=== PATIENT | male | born 1970 | race Caucasian/White ===

== ENCOUNTER 2022-03-27 13:16 | Outpatient (CLI) | payer OTHER, SELFPAY | END 2022-03-27 13:17 | disposition home or self-care (01) | LOC: AMB 04-19 06:31 | PROVIDERS: Visit Provider Emergency Medicine Emergency Medical Services | DX: S29.9XXA Unspecified injury of thorax, initial encounter (principal); S89.92XA Unspecified injury of left lower leg, initial encounter; W17.89XA Other fall from one level to another, initial encounter; Y93.H3 Activity, building and construction; Y92.61 Building [any] under construction as the place of occurrence of the external cause | CPT/HCPCS: A0425; A0427 ==

== ENCOUNTER 2022-03-27 13:48 | Emergency (ER) | payer OTHER, SELFPAY ==
[2022-03-27] VITALS (37 sets, daily range): BP systolic 110–132; BP diastolic 62–92; PULSE 72–95; RESP 16; TEMP 37.1; O2SAT 94–99
--- NOTE | 2022-03-27 13:59 | CRLHL7_ITS ---
For Patients: As a result of the Century Cures Act, medical imaging exams and procedure reports are released immediately into your electronic medical record. You may view this report before your referring provider. If you have questions, please contact your health care provider. INDICATION: Trauma. COMPARISON: Two-view chest February 04, 2020. TECHNIQUE: Portable AP chest. FINDINGS: Normal size cardiac silhouette. Clear lung rick with no evidence of acute pulmonic infiltrates. No pneumothorax or pleural effusion. IMPRESSION: Negative chest. Dictated by Gerald Nguyen MD @ 03/27/2022 2:27:20 PM (Electronically Signed)
--- NOTE | 2022-03-27 14:01 | CRLHL7_ITS ---
For Patients: As a result of the Cures Act, medical imaging exams and procedure reports are released immediately into your electronic medical record. You may view this report before your referring provider. If you have questions, please contact your health care provider. INDICATION: Fall, neck pain TECHNIQUE: CT cervical spine without contrast. COMPARISON: None. FINDINGS: There is normal cervical lordosis. The vertebral body heights are maintained and in good alignment. The facets are properly aligned. Negative for acute fracture. Mild multilevel disc space narrowing. Prevertebral soft tissues are within normal limits. Limited visualization of the lung apices are unremarkable. IMPRESSION: Negative for acute fracture. Dictated by Mirta Nicolas MD @ 03/27/2022 2:29:49 PM Please note that all CT scans at this facility use dose modulation, iterative reconstruction, and/or weight-based dosing when appropriate to reduce radiation dose to as low as reasonably achievable. Dictated by: Mirta Nicolas MD @ 03/27/2022 14:30:14 (Electronically Signed)
--- NOTE | 2022-03-27 14:01 | CT_ITS ---
Patient: JEFF GIBSON Facility:?[facility] Patient ID:?[id number] Site Patient ID:?[id number]. Site :?[id number] Study:?CT-Chest/Abd/Pelvis W/ 100CC [id number]/13/2022 2:31:25 PM Ordering Physician:Tutu Valdez Final Report: INDICATION: Trauma. Fall TECHNIQUE: CT chest, abdomen and pelvis acquired with 100 cc Isovue 370 IV contrast. COMPARISON: CT 02/05/2020 FINDINGS: Chest: Cardiovascular structures: Heart size is normal. Thoracic aorta and main pulmonary artery are normal in caliber. Mediastinum and cash: No mass or adenopathy. Lungs: Bibasilar atelectasis. Very tiny right pneumothorax. No pleural effusions. Chest wall and axilla: No mass or adenopathy. Bones: Nondisplaced fractures of right posterior 10th and 11th ribs. Abdomen and Pelvis: Liver: Unremarkable. Gallbladder and bile ducts: Unremarkable. Spleen: Unremarkable. Pancreas: Unremarkable. Adrenal glands: Unremarkable. Kidneys: Unremarkable. GI tract: Colonic diverticulosis without evidence of acute diverticulitis. Appendix is normal. Vascular structures: Unremarkable. Lymph nodes: Unremarkable. Miscellaneous: Unremarkable. No free air or significant free fluid. Pelvic Organs: Unremarkable. Bones: Right rib fracture is described above. No additional fracture is seen. IMPRESSION: 1. Nondisplaced fractures of the right posterior 10th and 11th ribs. There is a very tiny right pneumothorax. 2. No evidence of acute injury in the abdomen or pelvis. Please note that all CT scans at this facility use dose modulation, iterative reconstruction, and/or weight-based dosing when appropriate to reduce radiation dose to as low as reasonably achievable. Dictated by Zaid Bhat MD @ 03/27/2022 2:46:13 PM Signed by:?Zaid Bhat MD @03/27/2022 2:46:13 PM (Electronic Signature)
[2022-03-27] MEDS: ONDANSETRON 2 MG/ML inj 4 MG IVP (14:07)
[2022-03-27] MEDS: MORPHINE 4 MG/ML INJ IVP (14:08)
--- NOTE | 2022-03-27 14:08 | ED.GENADULT ---
HPI - General Adult General Date Seen: 03/27/22 Chief complaint: Fall/Minor Trauma Stated complaint: Fall 16ft Time Seen by Provider: 03/27/22 13:59 Source: patient and EMS History of Present Illness HPI narrative: Patient is a 52-year-old male who is generally healthy aside from an CO couple of years ago, he had a stent placed, currently on a statin but not on any anticoagulants. 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 He had a stair railing on the way down and then landed at the base of a flight of stairs. He complained of pain in the right flank area, pain with breathing and some shortness of breath secondary to pain. He denies hitting his head, no loss of consciousness. Initially denied neck pain although on further clarification did note some pain in the right side of his neck. No midline neck pain. He also noted some pain in the back of his thigh on the left. He denied anterior chest pain, abdominal pain, midline back pain, pain in the pelvis or hips. He received 50 mcg of fentanyl from paramedics. He was noted to have normal vital signs throughout transport. Medics did take pictures of the scene which I reviewed. Patient does not smoke, when I asked him if he drinks he said ?I am [place]?, but notes that he does not drink heavily. Denies other substance use. Denies allergies. Related Data Home Medications Medication Instructions Recorded Confirmed rosuvastatin 20 mg tablet mg 03/27/22 Allergies Allergy/AdvReac Type Severity Reaction Status Date / Time No Known Drug Allergies Allergy Verified 03/27/22 14:21 Review of Systems Status of ROS: Reports: 10 or more systems reviewed and unremarkable except as noted in History and below [facility] Social History Smoking Status: Never smoker Do you use any of these nicotine containing products: None Second hand tobacco smoke exposure: No How often do you have a drink containing alcohol: never How often do you have six or more drinks on one occasion: Never AUDIT-C Alcohol total score: 0 Exam Narrative: Exam Narrative: Primary survey: Airway: Patent. Breathing: Nonlabored. Lungs clear. Breath sounds equal. Circulation: Pulses intact. No external bleeding. Disability: GCS 15. Secondary survey: Vital signs reviewed In general, an alert, nontoxic male. Head: Normocephalic, atraumatic. Eyes: Pupils are equal reactive. Extraocular movements full. ENT: No facial trauma. Dentition intact. Neck: Cervical collar in place. No midline cervical tenderness. Did have some mild tenderness on the right side of the neck into the right trapezius muscle. No visible trauma. No anterior neck trauma. Chest: No visible signs of chest trauma. No tenderness in the anterior chest, significant tenderness in the right posterior lower rib cage. No crepitus or subQ air. Heart regular rate and rhythm. Lungs clear bilaterally. Abdomen: No visible signs of trauma. Soft, nondistended, nontender to palpation. Back: No visible signs of trauma. Nontender to palpation in the midline, right lower ribcage tenderness as outlined above. Pelvis: Stable, nontender. Full range of motion bilateral hips out pain. Extremities: Atraumatic in appearance. Some tenderness of the posterior mid to proximal thigh on the left without obvious hematoma or contusion. No deformity, no bony tenderness. No other areas of tenderness on upper or lower extremities. Pulses intact. Neurologic: Alert, conversant, moves all extremities to command. Skin: Warm and dry, no abrasions or lacerations. Const: Vital Signs, click to edit/add: Vital Signs - 24 hr 03/27/22 13:56 03/27/22 13:57 03/27/22 14:02 Temperature Pulse Rate 75 72 Pulse Rate [Left P ulse Oximeter] Respiratory Rate Blood Pressure 121/88 123/82 132/84 Blood Pressure [Le ft Upper Arm] Pulse Oximetry 97 97 Oxygen Delivery Me thod 03/27/22 14:06 03/27/22 14:17 03/27/22 14:00 Temperature 98.8 F Pulse Rate 82 Pulse Rate [Left P ulse Oximeter] 76 Respiratory Rate 16 Blood Pressure 119/86 Blood Pressure [Le ft Upper Arm] 121/88 Pulse Oximetry 99 96 98 Oxygen Delivery Me thod Room Air 03/27/22 14:07 03/27/22 14:27 03/27/22 14:30 Temperature Pulse Rate 73 88 87 Pulse Rate [Left P ulse Oximeter] Respiratory Rate Blood Pressure Blood Pressure [Le ft Upper Arm] Pulse Oximetry 98 94 95 Oxygen Delivery Me thod 03/27/22 14:31 03/27/22 14:36 03/27/22 14:40 Temperature Pulse Rate 85 83 83 Pulse Rate [Left P ulse Oximeter] Respiratory Rate Blood Pressure 120/83 121/78 Blood Pressure [Le ft Upper Arm] Pulse Oximetry 97 96 95 Oxygen Delivery Me thod 03/27/22 14:41 03/27/22 14:46 03/27/22 14:50 Temperature Pulse Rate 83 95 85 Pulse Rate [Left P ulse Oximeter] Respiratory Rate Blood Pressure 125/76 120/92 H Blood Pressure [Le ft Upper Arm] Pulse Oximetry 97 97 96 Oxygen Delivery Me thod 03/27/22 14:51 03/27/22 14:57 03/27/22 14:58 Temperature Pulse Rate 84 77 83 Pulse Rate [Left P ulse Oximeter] Respiratory Rate Blood Pressure 127/75 118/69 Blood Pressure [Le ft Upper Arm] Pulse Oximetry 96 94 96 Oxygen Delivery Me thod 03/27/22 15:00 03/27/22 15:01 03/27/22 15:06 Temperature Pulse Rate 80 79 90 Pulse Rate [Left P ulse Oximeter] Respiratory Rate Blood Pressure 119/75 119/69 Blood Pressure [Le ft Upper Arm] Pulse Oximetry 95 95 96 Oxygen Delivery Me thod 03/27/22 15:10 03/27/22 15:11 03/27/22 15:16 Temperature Pulse Rate 84 82 87 Pulse Rate [Left P ulse Oximeter] Respiratory Rate Blood Pressure 123/76 118/71 Blood Pressure [Le ft Upper Arm] Pulse Oximetry 95 96 96 Oxygen Delivery Me thod 03/27/22 15:20 03/27/22 15:21 03/27/22 15:26 Temperature Pulse Rate 82 83 82 Pulse Rate [Left P ulse Oximeter] Respiratory Rate Blood Pressure 115/67 114/68 Blood Pressure [Le ft Upper Arm] Pulse Oximetry 96 96 96 Oxygen Delivery Me thod 03/27/22 15:30 03/27/22 15:32 03/27/22 15:47 Temperature Pulse Rate 89 77 Pulse Rate [Left P ulse Oximeter] Respiratory Rate Blood Pressure 110/70 Blood Pressure [Le ft Upper Arm] Pulse Oximetry 97 96 Oxygen Delivery Me thod 03/27/22 15:50 03/27/22 18:56 03/27/22 18:58 Temperature Pulse Rate 77 86 86 Pulse Rate [Left P ulse Oximeter] Respiratory Rate Blood Pressure 113/79 Blood Pressure [Le ft Upper Arm] Pulse Oximetry 97 98 98 Oxygen Delivery Me thod 03/27/22 19:00 03/27/22 19:01 03/27/22 19:30 Temperature Pulse Rate 85 87 84 Pulse Rate [Left P ulse Oximeter] Respiratory Rate Blood Pressure 117/62 Blood Pressure [Le ft Upper Arm] Pulse Oximetry 97 98 98 Oxygen Delivery Me thod 03/27/22 19:32 Temperature Pulse Rate 85 Pulse Rate [Left P ulse Oximeter] Respiratory Rate Blood Pressure 122/72 Blood Pressure [Le ft Upper Arm] Pulse Oximetry 97 Oxygen Delivery Me thod Documenting provider has reviewed patient's vital signs: yes Course Course Hospital Course: Following initial evaluation, I did an E fast exam which was normal. Bilateral sliding lung signs were seen, there was no fluid in the abdomen and no evidence of pericardial effusion. Patient received 4 mg of morphine and 4 mg of Zofran for ongoing pain in the ribcage. A portable chest x-ray was done but has not yet been sent over. Patient was sent over for CT scans of the cervical spine, chest abdomen and pelvis. At this time I have held off on doing a CT of the head given the absence of any reported head trauma, loss of consciousness headache, or other symptoms of head trauma. Patient's only indication for head imaging would be mechanism, I think at this time I will just observe for while and see if he develops any symptoms. Labs ordered as well and these are pending. Anticipate that he will likely have rib fractures, but at this time he does not have evidence of thorax requiring treatment. Vital signs have remained stable. My review of his chest x-ray showed no evidence of pneumothorax. I do think he probably has at least 1 rib fracture, it looks to me on the right as if the 10th rib is fractured. Radiology read his chest x-ray is negative. On review of his CT scan, I see fractures of the 10th and 11th rib, there is no significant pneumothorax, there may be just a very tiny pneumothorax, no significant hemothorax, and I do not see any other trauma. Abdomen looked negative to me. CT scan of the cervical spine was read by Radiology as negative. Given that the patient does not have any midline neck pain, is moving his neck freely, I did remove the cervical collar and clear his C-spine. CT scan of the chest abdomen pelvis was read by Radiology as showing fractures of the 10th and 11th ribs and a tiny pneumothorax. I reviewed this with Dr. Espinoza who was on-call for General surgery in terms of whether this should be admitted for observation verses reasonable necessity of a repeat chest x-ray in the ER and then discharged home. She felt either was an option as long as he had a repeat chest x-ray tomorrow morning. His preference was to go home. His labs were normal, hemoglobin was normal, metabolic panel with normal, LFTs were normal. We did try and get a urine, but he said he was unable to pee in the cup for some reason. He did urinate while he was here, and denied gross hematuria. He had an oxycodone orally, he feels his pain is reasonably managed. I repeated a chest x-ray at the 4 hour anayeli, he does not have evidence of a visible pneumothorax by my review, final radiology read is likewise negative for pneumothorax on chest x-ray. Plan is to discharge him home. He will have an outpatient chest x-ray tomorrow which Dr. Espinoza will follow up on. If there is a visible pneumothorax tomorrow she will arrange for treatment as needed. In the meantime, I have advised him that he if he develops significant shortness of breath, significant chest pain, lightheadedness, fainting, or other acute worsening he should come back to the emergency department right away. Otherwise, ibuprofen and/or Tylenol 3 times daily with food. Oxycodone if needed for more severe pain. Anticipate gradual improvement over the next 1-2 months. Ice as needed.. Vital Signs Vital signs: Initial Vital Signs Pulse Rate 75 03/27/22 13:56 Blood Pressure 121/88 03/27/22 13:56 Blood Pressure Mean 99 03/27/22 13:56 Pulse Oximetry 97 03/27/22 13:56 Vital Signs Pulse Rate 75 03/27/22 13:56 Blood Pressure 121/88 03/27/22 13:56 Pulse Oximetry 97 03/27/22 13:56 Temperature 98.8 F 03/27/22 14:17 Pulse Rate 85 03/27/22 19:32 Respiratory Rate 16 03/27/22 14:17 Blood Pressure 122/72 03/27/22 19:32 Pulse Oximetry 97 03/27/22 19:32 Oxygen Delivery Method 03/27/22 14:17 Medical Decision Making Lab Data Labs: Lab Results 03/27/22 03/27/22 03/27/22 Range/Units 13:55 13:55 13:55 WBC 7.84 (4.50-11.00) K/uL RBC 4.61 (4.30-5.90) m/uL Hgb 13.8 (13.5-17.5) gm/dL Hct 40.6 (37.0-53.0) % MCV 88 (80-100) fL MCH 30 (26-34) pg MCHC 34 (32-36) gm/dL RDW Coeff of Monica 11.9 (11.5-15.5) % Plt Count 217 (140-440) K/uL Neut % (Auto) 60.3 (42.0-72.0) % Lymph % (Auto) 29.2 (20-44) % Edmunds % (Auto) 8.3 (0.0-11.0) % Eos % (Auto) 1.4 (0.0-7.0) % Baso % (Auto) 0.4 (0.0-3.0) % Neut # (Auto) 4.73 (1.7-7.0) K/uL Lymph # (Auto) 2.29 (0.90-2.90) K/uL Edmunds # (Auto) 0.70 (0.00-0.90) K/UL Eos # (Auto) 0.11 (0.00-0.50) K/uL Baso # (Auto) 0.03 (0.00-0.30) K/uL Abs Immat Gran (auto) 0.03 (0.00-0.30) K/uL Imm/Tot Granulo (auto) 0.4 % INR 0.99 (0.91-1.10) APTT 24 (23-33) Seconds Sodium 139 (135-149) mmol/L Potassium 5.0 (3.6-5.1) mmol/L Chloride 109 (96-114) mmol/L Carbon Dioxide 25 (20-32) mmol/L BUN 21 (7-30) mg/dL Creatinine 1.0 (0.5-1.5) mg/dL Estimated GFR 89 ml/min Glucose 96 (60-115) mg/dL Calcium 8.3 L (8.4-10.6) mg/dL Total Bilirubin 0.8 (0.1-1.5) mg/dL Direct Bilirubin 0.1 (0.0-0.5) mg/dL AST 38 H (12-35) U/L ALT 36 (4-50) U/L Alkaline Phosphatase 60 (40-150) U/L Total Protein 6.6 (6.0-8.3) g/dL Albumin 4.0 (3.3-5.0) g/dL Discharge Plan Discharge Clinical Impression: Fracture, ribs, Pneumothorax on right Patient Disposition: Home, Self-Care Condition: Stable Instructions: Rib Fracture (ED) Additional Instructions: Ibuprofen and/or Tylenol 3 times daily with food. Oxycodone if needed for more severe pain. If you have significant worsening shortness of breath, chest pain, lightheadedness, fainting, or other worsening, return at any time to the emergency department. Otherwise, return tomorrow morning for outpatient chest x-ray. Dr. Espinoza, general surgery, will follow up on that x-ray and advise you if further therapy is needed. Prescriptions: No Action rosuvastatin 20 mg tablet Label Comments: TAKE ONE TABLET BY MOUTH DAILY. Follow Up/Referrals: Denise Burns MD [Staff Physician] - Stand Alone Forms: [facility] Info Instructions
[2022-03-27 14:14] LABS: Basophils Absolute Auto 0.03 K/uL (0.00-0.30); Basophils Percent Auto 0.4 % (0.0-3.0); Eosinophils Absolute Auto 0.11 K/uL (0.00-0.50); Eosinophils Percent Auto 1.4 % (0.0-7.0); Hematocrit 40.6 % (37.0-53.0); Hemoglobin* 13.8 gm/dL (13.5-17.5); Immature Granulocytes Abs Auto 0.03 K/uL (0.00-0.30); Immature Granulocytes Pct Auto 0.4 %; Lymphocytes Absolute Auto 2.29 K/uL (0.90-2.90); Lymphocytes Percent Auto 29.2 % (20-44); Mean Corpuscular HGB Conc 34 gm/dL (32-36); Mean Corpuscular Hemoglobin 30 pg (26-34); Mean Corpuscular Volume 88 fL (80-100); Monocytes Percent Auto 8.3 % (0.0-11.0); Neutrophils Absolute Auto 4.73 K/uL (1.7-7.0); Neutrophils Percent Auto 60.3 % (42.0-72.0); Platelet Count* 217 K/uL (140-440); RDW Coefficient of Variation % 11.9 % (11.5-15.5); Red Blood Count 4.61 m/uL (4.30-5.90); Slide Review Reflex No; White Blood Count* 7.84 K/uL (4.50-11.00)
[2022-03-27 14:33] LABS: INR 0.99 (0.91-1.10); Prothrombin Time 13.7 Seconds
[2022-03-27 14:34] LABS: Partial Thromboplastin Time* 24 Seconds (23-33)
[2022-03-27 14:47] LABS: Chloride* 109 mmol/L (96-114)
[2022-03-27 14:48] LABS: Sodium* 139 mmol/L (135-149)
[2022-03-27 14:50] LABS: Aspartate Amino Transferase* 38 U/L (12-35); Bilirubin Direct* 0.1 mg/dL (0.0-0.5); Bilirubin Total* 0.8 mg/dL (0.1-1.5); Blood Urea Nitrogen* 21 mg/dL (7-30); Carbon Dioxide* 25 mmol/L (20-32); Estimated Glomerular Filt Rate 89 ml/min; Total Protein* 6.6 g/dL (6.0-8.3)
[2022-03-27 14:51] LABS: Alanine Aminotransferase* 36 U/L (4-50); Alkaline Phosphatase* 60 U/L (40-150); Calcium* 8.3 mg/dL (8.4-10.6); Glucose* 96 mg/dL (60-115)
[2022-03-27] MEDS: KETOROLAC 15 MG/ML inj IVP (14:54)
[2022-03-27] MEDS: OXYCODONE 5 MG TABLET PO (15:49)
--- NOTE | 2022-03-27 17:58 | XR_ITS ---
Patient: JEFF GIBSON Facility:?[facility] Patient ID:?[id number] Site Patient ID:?[id number]. Site :?[id number] Study:?XRay-Chest PORTABLE-03/27/2022 2:20:09 PM Ordering Physician:Tutu Valdez Final Report: INDICATION: Trauma. COMPARISON: Two-view chest February 04, 2020. TECHNIQUE: Portable AP chest. FINDINGS: Normal size cardiac silhouette. Clear lung rick with no evidence of acute pulmonic infiltrates. No pneumothorax or pleural effusion. IMPRESSION: Negative chest. Dictated by Gerald Nguyen MD @ 03/27/2022 2:27:20 PM Signed by:?Gerald Nguyen MD @03/27/2022 2:27:20 PM (Electronic Signature)
== END 2022-03-27 19:58 | disposition home or self-care (01) ==
PROVIDERS: Emergency Provider Emergency Medicine
DX: S22.41XA Multiple fractures of ribs, right side, initial encounter for closed fracture (principal); J93.9 Pneumothorax, unspecified; W17.89XA Other fall from one level to another, initial encounter
CPT/HCPCS: 36415; 71045; 71260; 72125; 74177; 80048; 80076; 81001; 85025; 85610; 85730; 94761; 96374; 96375; 99283; 99284; 99285; 99291; A9270; G0390; J1885; J2270; J2405; Q9967

== ENCOUNTER 2022-03-28 10:11 | Outpatient (CLI) | payer OTHER, SELFPAY ==
--- NOTE | 2022-03-28 10:30 | CRLHL7_ITS ---
For Patients: As a result of the Cures Act, medical imaging exams and procedure reports are released immediately into your electronic medical record. You may view this report before your referring provider. If you have questions, please contact your health care provider. INDICATION: FOLLOW UP RIB FRACTURES TECHNIQUE: Chest 2 views COMPARISON: CT 03/27/2022 FINDINGS: Right pneumothorax is present measuring 1.8 cm. Trachea midline. Cardiac silhouette unchanged. No pleural effusion. Dependent atelectasis. Subcutaneous emphysema at the right lower hemithorax posteriorly again noted. Fractures of the right 10th and 11th ribs better visualized on CT. IMPRESSION: Right pneumothorax has increased slightly in the interim. Dictated by Nestor Horan MD @ 03/28/2022 11:59:08 AM (Electronically Signed)
== END 2022-03-28 10:12 | disposition home or self-care (01) ==
PROVIDERS: Visit Provider Emergency Medicine
DX: S22.49XA Multiple fractures of ribs, unspecified side, initial encounter for closed fracture (principal); J93.9 Pneumothorax, unspecified
CPT/HCPCS: 71046

== ENCOUNTER 2022-03-28 17:46 | Observation (INO) | payer OTHER, SELFPAY ==
[2022-03-28 12:21] VITALS: BP 136/81; PULSE 72; RESP 18; TEMP 36.9; O2SAT 97; BMI 30.9
[2022-03-28 13:05] LABS: SARS PCR* Negative SARS-CoV-2 (Negative)
--- NOTE | 2022-03-28 14:00 | XR_ITS ---
Final Report Patient: JEFF GIBSON Facility:?[facility] Patient ID:?[id number] Site Patient ID:?[id number]. Site :?[id number] Study:?XRay Chest PORTABLE-03/27/2022 2:20:09 PM Ordering Physician:Tutu Valdez Final Report: INDICATION: Trauma. COMPARISON: Two-view chest February 04, 2020. TECHNIQUE: Portable AP chest. FINDINGS: Normal size cardiac silhouette. Clear lung rick with no evidence of acute pulmonic infiltrates. No pneumothorax or pleural effusion. IMPRESSION: Negative chest. Dictated by Gerald Nguyen MD @ 03/27/2022 2:27:20 PM (Electronic Signature)
[2022-03-28 15:00] VITALS: BP 148/90; PULSE 75; RESP 16; RESP 18; TEMP 36.9; O2SAT 99
--- NOTE | 2022-03-28 17:13 | P.GSHP_ITS ---
History of Present Illness History of Present Illness Date Seen: 03/28/22 Chief complaint: Right Pneumothorax Narrative: Jt Aden is a 52 year old male presents with enlarged right pneumothorax. 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 He sustained tenth and eleventh nondisplaced rib fractures on the right and a tiny pneumothorax. Patient's repeat chest x-ray did not show a pneumothorax and he was discharged home with close follow-up. Patient had a chest x-ray done today in the morning that showed an enlarged right pneumothorax. Patient denied shortness of breath or chest pain. Patient was then referred to come to the hospital for continued monitoring of his pneumothorax and oxygen therapy. Review of Systems Narrative: General: no fevers HENT: no problems swallowing CV: no shortness of breath Resp: no cough GI: No nausea, vomiting, abdominal pain : no dysuria, no increased urinary frequency, no hematuria Skin: no new rashes Neuro: no muscle weakness Psyche: no depression, no anxiety PFSH PFSH Medical History Heart attack High cholesterol Surgical History S/P knee surgery Family History Mother Diabetes Social History Narrative: Patient works as electrical engineering designer. Highest level of school completed/degree received: Bachelor's degree Smoking Status: Never smoker Do you use any of these nicotine containing products: None Second hand tobacco smoke exposure: No How often do you have a drink containing alcohol: 2-3 times a week Alcohol type: beer and wine AUDIT-C Alcohol total score: 3 Non-prescribed substance use: denies use Caffeine: Yes (Tea 5 cups a day) service: Yes (In linda) Meds Home Medications and Allergies Home Medications Medication Instructions Recorded Confirmed Type rosuvastatin 20 mg tablet 20 mg PO DAILY 03/27/22 03/28/22 History Allergies Allergy/AdvReac Type Severity Reaction Status Date / Time No Known Drug Allergies Allergy Verified 11/13/22 14:21 Exam Narrative: Exam Narrative: General appearance: Alert, cooperative, and in no distress Pulmonary: Chest symmetric, lungs clear bilaterally Cardiovascular Heart: Regular rate and rhythm, S1, S2, no murmurs/rubs/gallops Gastrointestinal Abdominal: soft, not distended Psychiatric: Alert, cooperative, normal affect. Const: Vital Signs, click to edit/add: Vital Signs - 24 hr 03/28/22 12:21 03/28/22 12:21 03/28/22 15:00 Temperature 98.4 F Pulse Rate [Pulse Oximeter] 72 75 Respiratory Rate 18 18 16 Blood Pressure [Ri ght Arm] 136/81 Pulse Oximetry 97 97 Oxygen Delivery Me thod Room Air Room Air Oxygen Flow Rate 03/28/22 15:00 03/28/22 15:00 Temperature 98.4 F Pulse Rate [Pulse Oximeter] 75 Respiratory Rate 18 16 Blood Pressure [Ri ght Arm] 148/90 H Pulse Oximetry 99 99 Oxygen Delivery Me thod Nasal Cannula Nasal Cannula Oxygen Flow Rate 2 2 Results Results Chest x-ray: report reviewed and image reviewed CT scan - chest: report reviewed and image reviewed Assessment and Plan Assessment and plan (1) Pneumothorax on right: Status: Acute Assessment and Plan: 52-year-old male with 2 right-sided rib fractures and right pneumothorax s/p fall. I discussed with the patient his chest x-ray findings. Patient pneumothorax yesterday on chest CT was very small and no pneumothorax was noted on his follow-up x-ray. However today his chest x-ray shows small but very noticeable right pneumothorax. This was enlarged from last night and patient was recommended to come in for observation. Patient's chest x-ray in the afternoon confirmed right pneumothorax which was not significantly enlarged. Patient continues to be on 2 L of oxygen by nasal cannula to aid improvement of his pneumothorax. I think we will wait on chest tube placement for now. We will repeat his chest x-ray tomorrow morning. (2) Fracture, ribs: Status: Acute
[2022-03-28] MEDS: HYDROCODONE-ACETAMIN 5-325 MG 1 TAB PO (17:48)
--- NOTE | 2022-03-28 18:15 | PC.NURSE ---
End of Shift: Patient arrived to the floor about 1400. Patient patient and cooperative. Patient is independent in room. Patient vitally stable, lung clear but more diminished on the right side posteriorly, BS WNL, NO IV. Patient rates right rib/flank pain at most 5-6/10, 1 tab of norco given once. Patient on 2 L oxygen NS with sats 99-100%, with out oxygen patient is above 90%. Patient tolerating regular diet and urinating.
[2022-03-28 19:00] VITALS: BP 121/75; PULSE 83; RESP 16; TEMP 36.7; O2SAT 97
[2022-03-28 23:00] VITALS: BP 117/68; PULSE 87; RESP 16; TEMP 37.3; O2SAT 95
[2022-03-29 03:00] VITALS: BP 112/71; PULSE 74; RESP 16; TEMP 37.1; O2SAT 97
--- NOTE | 2022-03-29 05:07 | PC.NURSE ---
[id number] Pt slept well all night, acknowledges pain 5/10 when awake and moving but declined prn pain medication. Denies SOB, difficulty or labored breathing. Pt on 2 LPM NC during NOC.
--- NOTE | 2022-03-29 07:16 | CRLHL7_ITS ---
For Patients: As a result of the Century Cures Act, medical imaging exams and procedure reports are released immediately into your electronic medical record. You may view this report before your referring provider. If you have questions, please contact your health care provider. INDICATION: Follow-up pneumothorax COMPARISON: March 28, 2022 at 6:47 a.m. TECHNIQUE: PA and lateral views of the chest were acquired FINDINGS: TUBES AND LINES: None. HEART AND MEDIASTINUM: The heart size is normal. The mediastinal contour appears normal for patient age. LUNGS AND PLEURAL SPACES: Basilar atelectasis apparent no pleural effusion. No definite pneumothorax on either side. OSSEOUS STRUCTURES: Age-appropriate appearance. No acute focal finding. IMPRESSION: Basilar atelectasis. No pleural effusion. No definite pneumothorax on either side. Dictated by Jt Liirano MD @ 03/29/2022 7:24:02 AM (Electronically Signed)
[2022-03-29 07:35] VITALS: BP 114/72; PULSE 73; RESP 18; TEMP 36.4; O2SAT 97
[2022-03-29] MEDS: TRAMADOL HCL 50 MG TABLET PO (08:56)
--- NOTE | 2022-03-29 10:17 | PM.DS1 ---
DS: Providers Provider Date Seen: 03/29/22 Date of admission: 03/28/22 17:46 Primary care physician: Not a Local Provider Admitting Clinician: Jimmy Higgins MD Attending Physician on discharge: Jimmy Higgins MD DS: Diagnosis Discharge Diagnosis (1) Fracture, ribs: Status: Acute (2) Pneumothorax on right: Status: Acute DS: Summary Hospital Course Hospital Course: Patient was admitted to the hospital with enlarging right pneumothorax s/p a fall with right-sided rib fractures. Patient was treated with oxygen therapy. His pneumothorax continued to be stable on follow-up chest x-rays. Patient was completely asymptomatic. Time Spent with Patient Time attestation: Total time spent providing and/or coordinating discharge services: Exam Narrative: Exam Narrative: Chest: Breathing is nonlabored. Const: Vital Signs, click to edit/add: Vital Signs - 24 hr 03/28/22 12:21 03/28/22 12:21 03/28/22 15:00 Temperature 98.4 F Pulse Rate [Pulse Oximeter] 72 75 Respiratory Rate 18 18 16 Blood Pressure [Ri ght Arm] 136/81 Pulse Oximetry 97 97 Oxygen Delivery Me thod Room Air Room Air Oxygen Flow Rate 03/28/22 15:00 03/28/22 15:00 03/28/22 19:00 Temperature 98.4 F 98.1 F Pulse Rate [Pulse Oximeter] 75 83 Respiratory Rate 18 16 16 Blood Pressure [Ri ght Arm] 148/90 H 121/75 Pulse Oximetry 99 99 97 Oxygen Delivery Me thod Nasal Cannula Nasal Cannula Nasal Cannula Oxygen Flow Rate 2 2 2 03/28/22 23:00 03/28/22 23:00 03/28/22 23:00 Temperature 99.1 F Pulse Rate [Pulse Oximeter] 87 Respiratory Rate 16 16 16 Blood Pressure [Ri ght Arm] 117/68 Pulse Oximetry 95 95 Oxygen Delivery Me thod Nasal Cannula Nasal Cannula Oxygen Flow Rate 2 2 03/29/22 03:00 Temperature 98.8 F Pulse Rate [Pulse Oximeter] 74 Respiratory Rate 16 Blood Pressure [Ri ght Arm] 112/71 Pulse Oximetry 97 Oxygen Delivery Me thod Nasal Cannula Oxygen Flow Rate 2 DS: Data Data Completed and Pending Labs on day of discharge: Labs from last 24 hours 03/28/22 11:58 SARS-CoV-2 (PCR) Negative SARS-CoV-2 Discharge Plan Discharge Disposition: Home, Self-Care Date of Admission: 03/28/22 17:46 Attending Provider on Discharge: Jimmy Higgins Primary Care Provider: Provider,Not a Local Condition: Improved Anticipated Discharge Date/Time: 03/29/22 09:48 Discharge Medications: Continued rosuvastatin 20 mg tablet 20 mg PO DAILY Label Comments: TAKE ONE TABLET BY MOUTH DAILY. Discharge Orders: Discharge Order (Routine); Ordered 03/29/22 Ordered By: Jimmy Higgins Patient Education: Traumatic Pneumothorax (DC) Additional Instructions: Patient needs to get chest x-ray at [facility] this on . Activity Detail: No flying in the airplane for 4 weeks. Discharge Diet: Regular Follow Up Appointments: [facility] [Other] - 03/31/22 10:00 am Provider,Not a Local [Primary Care Provider] - Forms: [employer] Info Instructions
--- NOTE | 2022-03-29 11:03 | PC.NURSE ---
Pt returned from am X-ray. Jt stated I think I may be allergic to the last pain med I had yesterday evening. RN contacted Dr. Martinez and new order for tramadol 50-100 mg obtained. Kidney fct wnl parameters. Pt did not received toradol 15 mg since he did not have an existing IV site and refused insertion of IV catheter. I'll just take ibuprofen when I get home. Dr. Higgins in to evaluated pt. tJ and his Sandra verbalized understanding of d/c diagnosis, home meds, pain management, f/up appt for repeat X-ray and sx to report urgently to Dr. Higgins. Ambulatory d/c to own home with all personal belongings @ 10:27 with Sandra as transportation.
== END 2022-03-29 10:27 | disposition home or self-care (01) ==
PROVIDERS: Admitting Provider Surgery; Visit Provider Surgery
DX: S22.49XA Multiple fractures of ribs, unspecified side, initial encounter for closed fracture (principal); J93.9 Pneumothorax, unspecified; R10.9 Unspecified abdominal pain; M79.652 Pain in left thigh; M54.2 Cervicalgia; W17.89XA Other fall from one level to another, initial encounter; Y93.89 Activity, other specified; Y92.9 Unspecified place or not applicable; T14.90XA Injury, unspecified, initial encounter
CPT/HCPCS: 71045; 87635; A9270; G0378; G0379

== ENCOUNTER 2022-07-04 10:50 | Outpatient (CLI) | payer OTHER, SELFPAY ==
[2022-07-04 12:11] LABS: Cholesterol* 155 mg/dL (90-199)
[2022-07-04 12:12] LABS: HDL Cholesterol* 47 mg/dL (>=40); LDL Cholesterol Calculated 84 mg/dL (<100); Triglycerides* 120 mg/dL (40-149)
== END 2022-07-04 10:51 | disposition home or self-care (01) ==
LOC: NFLDREF 10:51
PROVIDERS: PCP Internal Medicine; Visit Provider Internal Medicine
DX: I25.10 Atherosclerotic heart disease of native coronary artery without angina pectoris (principal)
CPT/HCPCS: 80061

== ENCOUNTER 2023-08-11 08:25 | Outpatient (CLI) | payer OTHER, SELFPAY | END 2023-08-11 08:26 | disposition home or self-care (01) | LOC: NFLDREF 13:10 | PROVIDERS: PCP Internal Medicine; Referring Provider Internal Medicine; Visit Provider Internal Medicine | DX: Z00.00 Encounter for general adult medical examination without abnormal findings (principal); E78.5 Hyperlipidemia, unspecified; I25.10 Atherosclerotic heart disease of native coronary artery without angina pectoris; Z12.5 Encounter for screening for malignant neoplasm of prostate | CPT/HCPCS: 80061; G0103 ==

== ENCOUNTER 2023-11-22 17:03 | Emergency (ER) | payer OTHER, SELFPAY ==
[2023-11-22] VITALS (10 sets, daily range): BP systolic 140–153; BP diastolic 88–95; PULSE 56–66; RESP 18–20; TEMP 36.3–36.7; O2SAT 97–99; BMI 30.1
--- NOTE | 2023-11-22 17:13 | ED_ITS ---
HPI - General Adult General Time Seen by Provider: 17:13 Date Seen: 11/22/23 Chief complaint: Dizziness/Vertigo Stated complaint: Chest pressure, dizzy, nausea, short of breath Time Seen by Provider: 11/22/23 17:13 Source: patient and RN notes reviewed Mode of arrival: ambulatory Limitations: no limitations History of Present Illness HPI narrative: Jt is a very pleasant 53-year-old gentleman with a history of non STEMI, stent placement in 2019 who comes to the [facility] with complaints regarding ongoing nausea, chest tightness, lightheadedness for 3 days. Patient notes that he had an episode of nausea not associated with vomiting or diarrhea on MondayNovember 16. He was traveling and attributed this to driving all day and a higher elevation at [facility]. He notes that he was dehydrated that day. He went to bed and he was able to wake up with no symptoms. The following 48 hours he had no symptoms and was pushing fluids. He notes that he had another lying day of driving on MondayNovember 19 and that evening had nausea return. He again notes no vomiting or diarrhea- noted that it was a little bit harder to stool which is common for him when he is on his trips. He notes that the nausea was slightly better yesterday but now today any time he eats the nausea comes back. He feels like his heart is racing and that his blood pressure is low. He was surprised to find out that his blood pressure is actually elevated. He has had associated lightheadedness-not vertigo-with the nausea. It is much worse when he stands up. He denies headache sore throat runny nose cough cold congestion and a COVID test that he took this morning is negative. Patient also denies any belly pain but then states that his stomach does not feel very good with the nausea. He has had no ill contacts. He describes a tightness across his chest today but states that it could be anxiety. He has not had any tick bites. He notes that he is well- hydrated that his urine is running clear today. Patient is accompanied by his is very loving and supportive. Related Data Previous Rx's ?Medication ?Instructions ?Recorded sildenafil 100 mg tablet 100 mg PO ONCE PRN sexual activity 05/09/23 #10 tabs ciclopirox 8 % topical solution 1 applic topical QHS 4 weeks #6.6 08/14/23 mL nitroglycerin 0.4 mg sublingual 0.4 mg sublingual Q5M PRN chest 08/14/23 tablet pain #25 tabs rosuvastatin 20 mg tablet 20 mg PO DAILY #90 tabs 08/14/23 meclizine 25 mg tablet 25 mg PO TID PRN #15 tabs 11/22/23 Allergies Allergy/AdvReac Type Severity Reaction Status Date / Time acetaminophen AdvReac Intermediate Verified 08/14/23 07:42 Review of Systems Status of ROS: Reports: 6 or more systems reviewed and unremarkable except as noted in History and below Const: Reports: fatigue; Denies: fever or chills Eyes: Reports: blurry vision; Denies: change in vision ENMT: Denies: throat pain, neck pain, tinnitus, vertigo or nasal congestion Cardio: Reports: chest pain (Described as a tightness) and lightheadedness; Denies: edema, swelling of feet/ankles or shortness of breath with exertion Resp: Denies: shortness of breath, cough or wheezing GI: Reports: abdominal pain (Epigastric) and nausea; Denies: vomiting, diarrhea or blood in stool : Denies: painful urination or urinary frequency Musculo: Denies: back pain, neck pain, extremity pain or extremity swelling Integ/Breast: Denies: rash Neuro: Reports: numbness in extremities (Some tingling at the bottom of both of his feet); Denies: headache, weakness in extremities or vertigo Endo: Reports: fatigue Allergy/Immuno: Denies: wheezing PFSH PFSH Surgical History History of arthroscopic knee surgery ?Z98.890 - Other specified postprocedural states (ICD-10) Family History Mother Diabetes Social History Narrative: Patient works as systems software designer. What is your current living situation?: I presently have a place to live Problems where you live: no known problems In the past 12 months, utilities in danger of being shut off: no In past 12 months, lack of transportation kept you from medical appts, meetings, work, or getting things needed for daily living: no In the past 12 mos, have been you worried that your food would run out before you had money to buy more?: never true In the past 12 mos, the food you bought just didn't last and you didn't have money to buy more?: never true Highest level of school completed/degree received: Bachelor's degree Smoking Status: Never smoker Do you use any of these nicotine containing products: None Second hand tobacco smoke exposure: No How often do you have a drink containing alcohol: 2-3 times a week Alcohol type: beer and wine AUDIT-C Alcohol total score: 3 Non-prescribed substance use: denies use Caffeine: Yes (Tea 5 cups a day) How often does anyone, including family, friends and others, physically hurt you : never How often does anyone, including family, friends and others, insult or talk down to you: never How often does anyone, including family, friends and others, threaten you with harm: never How often does anyone, including family, friends and others, scream or curse at you: rarely Little interest or pleasure in doing things: not at all Feeling down, depressed, or hopeless: not at all service: Yes (In linda) Exam Narrative: Exam Narrative: Alert and oriented. No acute distress. EOM is full. Face is symmetrical. Mentation and speech normal. Oral cavity with moist mucous membranes. Neck is supple without lymphadenopathy. Heart with a regular rate and rhythm. No additional heart sounds or murmurs noted. Lungs are clear bilaterally. Some slight tenderness was solid fashion all CVA bilaterally. Abdomen soft nontender. Right negative Borrero sign. Lower extremities without edema. No calf pain. Loss of hair on lower extremities noted. Bilateral pulses palpated and are symmetrical. Const: Vital Signs, click to edit/add: Vital Signs - 24 hr 11/22/23 17:07 11/22/23 17:36 11/22/23 18:40 Temperature 97.3 F L Pulse Rate 60 Pulse Rate [Right Pulse Oximeter] 60 Pulse Rate [orthos tatic lying] 60 Pulse Rate [orthos tatic sitting] 61 Pulse Rate [orthos tatic standing] 66 Respiratory Rate 18 Blood Pressure Blood Pressure [Ri ght Upper Arm] 146/88 H Blood Pressure [or thostatic lying] 149/95 H Blood Pressure [or thostatic sitting] 140/92 H Blood Pressure [or thostatic standing ] 148/90 H Pulse Oximetry 98 99 Oxygen Delivery Me thod Room Air 11/22/23 18:45 11/22/23 19:00 11/22/23 19:00 Temperature Pulse Rate 62 63 Pulse Rate [Right Pulse Oximeter] Pulse Rate [orthos tatic lying] Pulse Rate [orthos tatic sitting] Pulse Rate [orthos tatic standing] Respiratory Rate Blood Pressure Blood Pressure [Ri ght Upper Arm] Blood Pressure [or thostatic lying] Blood Pressure [or thostatic sitting] Blood Pressure [or thostatic standing ] Pulse Oximetry 99 97 99 Oxygen Delivery Me thod 11/22/23 19:02 11/22/23 19:15 11/22/23 19:30 Temperature Pulse Rate 56 L 61 57 L Pulse Rate [Right Pulse Oximeter] Pulse Rate [orthos tatic lying] Pulse Rate [orthos tatic sitting] Pulse Rate [orthos tatic standing] Respiratory Rate Blood Pressure 153/89 H Blood Pressure [Ri ght Upper Arm] Blood Pressure [or thostatic lying] Blood Pressure [or thostatic sitting] Blood Pressure [or thostatic standing ] Pulse Oximetry 99 98 99 Oxygen Delivery Me thod 11/22/23 20:02 11/22/23 20:02 Temperature 97.3 F L Pulse Rate 62 Pulse Rate [Right Pulse Oximeter] 62 Pulse Rate [orthos tatic lying] Pulse Rate [orthos tatic sitting] Pulse Rate [orthos tatic standing] Respiratory Rate 20 20 Blood Pressure 143/90 H Blood Pressure [Ri ght Upper Arm] 143/90 H Blood Pressure [or thostatic lying] Blood Pressure [or thostatic sitting] Blood Pressure [or thostatic standing ] Pulse Oximetry 98 98 Oxygen Delivery Tx thod Room Air Documenting provider has reviewed patient's vital signs: yes Course Course ED Course: Differential diagnosis includes but is not limited to inner ear origin, acute coronary syndrome, angina, viral cause, anxiety, PE. Will place IV and draw labs to include CBC, D-dimer, comprehensive panel, CRP , troponin I, urinalysis. Will also do EKG and chest x-ray and continue cardiac monitoring given his past cardiac history. At this time the NIH SS is 0. Full strength and motor. EOM is full. Reevaluation(s) Reevaluation #1: Have informed Jt that his troponin is negative and EKG is reassuring. Awaiti ng remainder of labs. Reevaluation #2: Patient noted improvement after Zofran. States he is now hungry. Would like something to drink and settling on Sprite. Note D-dimer is negative, no evidence of hypoxia, lower extremity symptoms or history of DVT. Patient does not have any tachycardia and thus I do not think we are dealing with PE. EKG is reassuring and initial troponin is negative. Will await 2nd troponin and EKG. Vital Signs Vital signs: Initial Vital Signs Temperature 97.3 F L 11/22/23 17:07 Temperature Source Temporal Artery Scan 11/22/23 17:07 Pulse Rate 60 11/22/23 17:07 Respiratory Rate 18 11/22/23 17:07 Blood Pressure 146/88 H 11/22/23 17:07 Blood Pressure Mean 107 H 11/22/23 17:07 Blood Pressure Position Sitting 11/22/23 17:07 Pulse Oximetry 98 11/22/23 17:07 Oxygen Delivery Method Room Air 11/22/23 17:07 Vital Signs Temperature 97.3 F L 11/22/23 17:07 Pulse Rate 60 11/22/23 17:07 Respiratory Rate 18 11/22/23 17:07 Blood Pressure 146/88 H 11/22/23 17:07 Pulse Oximetry 98 11/22/23 17:07 Oxygen Delivery Method Room Air 11/22/23 17:07 Temperature 97.3 F L 11/22/23 20:02 Pulse Rate 62 11/22/23 20:02 Respiratory Rate 20 11/22/23 20:02 Blood Pressure 143/90 H 11/22/23 20:02 Pulse Oximetry 98 11/22/23 20:02 Oxygen Delivery Method Room Air 11/22/23 20:02 Medications Administered Medications: Generic Name Dose Route Start Last Admin Trade Name Freq PRN Reason Stop Dose Admin Diazepam 5 mg 11/22/23 20:23 11/22/23 20:24 Diazepam 5 Mg/Ml Inj IM 11/22/23 20:24 5 mg ONCE ONE Administration Discontinued Medications Generic Name Dose Route Start Last Admin Trade Name Freq PRN Reason Stop Dose Admin Sodium Chloride 1,000 mls @ 1,000 mls/hr 11/22/23 17:30 11/22/23 19:00 0.9 % Sodium Chloride 1000 Ml IV 11/22/23 18:29 Infused .Q1H CONNIE Infusion Ondansetron HCl 4 mg 11/22/23 17:29 11/22/23 19:00 Ondansetron 2 Mg/Ml Inj IVP 11/22/23 17:30 4 mg ONCE ONE Administration Medical Decision Making MDM Narrative Medical decision making narrative: 1. Inner ear dysfunction-patient noted have lightheadedness and not vertigo during his time here. Prior to discharge he ambulated to the bathroom without difficulty. When he returned from a the bathroom, he complained that his head felt full and that he felt that his balance was off. This was not noted in his ambulation. Patient's IV had been removed and I asked if I could do a maneuver and thus performed the Hallpike maneuver on his right. He had an immediate and profound reaction with nausea and vomiting. I do believe that his symptoms are most likely from benign positional vertigo. Patient was given Valium 5 mg IM and had improvement. He is discharged home. We did send 2 tablets of meclizine 25 mg to be taken q.8 hours as needed. Further meclizine sent to the pharmacy tomorrow. 2. Atypical chest pain-EKG negative x2, troponin negative x2,. 3. Disposition -home at this time. Suggest follow-up with Dr. Burns if not improved. Return to the emergency room for worsening symptoms. Medical Records Medical records reviewed: Yes I reviewed the patient's medical records Lab Data Lab results reviewed: Yes I reviewed the patient's lab results Labs: Lab Results 11/22/23 11/22/23 11/22/23 Range/Units 17:29 17:50 19:50 WBC 9.54 (4.50-11.00) K/uL RBC 5.03 (4.30-5.90) m/uL Hgb 14.4 (13.5-17.5) gm/dL Hct 43.9 (37.0-53.0) % MCV 87 (80-100) fL MCH 29 (26-34) pg MCHC 33 (32-36) gm/dL RDW Coeff of Monica 12.0 (11.5-15.5) % Plt Count 220 (140-440) K/uL Neut % (Auto) 71.2 (42.0-72.0) % Lymph % (Auto) 19.7 L (20-44) % Snyder % (Auto) 7.8 (0.0-11.0) % Eos % (Auto) 0.9 (0.0-7.0) % Baso % (Auto) 0.2 (0.0-3.0) % Neut # (Auto) 6.79 (1.7-7.0) K/uL Lymph # (Auto) 1.90 (0.90-2.90) K/uL Snyder # (Auto) 0.70 (0.00-0.90) K/UL Eos # (Auto) 0.09 (0.00-0.50) K/uL Baso # (Auto) 0.02 (0.00-0.30) K/uL Abs Immat Gran (auto) 0.02 (0.00-0.30) K/uL Imm/Tot Granulo (auto) 0.2 % D-Dimer Quant (PE/DVT) 0.06 (0.00-0.50) ug/ml Sodium 138 (135-149) mmol/L Potassium 4.5 (3.6-5.1) mmol/L Chloride 107 (96-114) mmol/L Carbon Dioxide 21 (20-32) mmol/L Anion Gap 10 (7-15) mEq/L BUN 13 (7-30) mg/dL Creatinine 0.8 (0.5-1.5) mg/dL Estimated Creat Clear 107.73 Estimated GFR 105 ml/min Glucose 113 (60-115) mg/dL Calcium 9.2 (8.4-10.6) mg/dL Total Bilirubin 0.8 (0.1-1.5) mg/dL AST 25 (12-35) U/L ALT 23 (4-50) U/L Alkaline Phosphatase 63 (40-150) U/L C-Reactive Protein < 0.5 L (0.5-1.0) mg/dL Total Protein 7.4 (6.0-8.3) g/dL Albumin 4.5 (3.3-5.0) g/dL Urine Color (Yellow) Urine Appearance (Clear) Urine pH (5.0-8.5) Ur Specific [place] (1.000-1.030) Urine Protein (Negative) Urine Glucose (UA) (Negative) Urine Ketones (Negative) Urine Blood (Negative) Urine Nitrite (Negative) Urine Bilirubin (Negative) Urine Urobilinogen (0.2-1.0) Ur Leukocyte Esterase (Negative) Urine RBC (0-2) Urine WBC (0-5) Ur Squamous Epith Cells (None-Few) Urine Bacteria (None) POC Troponin I 0.00 L 0.01 (0.01-0.04) ng/ml 11/22/23 Range/Units Unknown WBC (4.50-11.00) K/uL RBC (4.30-5.90) m/uL Hgb (13.5-17.5) gm/dL Hct (37.0-53.0) % MCV (80-100) fL MCH (26-34) pg MCHC (32-36) gm/dL RDW Coeff of Monica (11.5-15.5) % Plt Count (140-440) K/uL Neut % (Auto) (42.0-72.0) % Lymph % (Auto) (20-44) % Snyder % (Auto) (0.0-11.0) % Eos % (Auto) (0.0-7.0) % Baso % (Auto) (0.0-3.0) % Neut # (Auto) (1.7-7.0) K/uL Lymph # (Auto) (0.90-2.90) K/uL Snyder # (Auto) (0.00-0.90) K/UL Eos # (Auto) (0.00-0.50) K/uL Baso # (Auto) (0.00-0.30) K/uL Abs Immat Gran (auto) (0.00-0.30) K/uL Imm/Tot Granulo (auto) % D-Dimer Quant (PE/DVT) (0.00-0.50) ug/ml Sodium (135-149) mmol/L Potassium (3.6-5.1) mmol/L Chloride (96-114) mmol/L Carbon Dioxide (20-32) mmol/L Anion Gap (7-15) mEq/L BUN (7-30) mg/dL Creatinine (0.5-1.5) mg/dL Estimated Creat Clear Estimated GFR ml/min Glucose (60-115) mg/dL Calcium (8.4-10.6) mg/dL Total Bilirubin (0.1-1.5) mg/dL AST (12-35) U/L ALT (4-50) U/L Alkaline Phosphatase (40-150) U/L C-Reactive Protein (0.5-1.0) mg/dL Total Protein (6.0-8.3) g/dL Albumin (3.3-5.0) g/dL Urine Color Yellow (Yellow) Urine Appearance Clear (Clear) Urine pH 7.0 (5.0-8.5) Ur Specific [place]field 1.020 (1.000-1.030) Urine Protein Negative (Negative) Urine Glucose (UA) Negative (Negative) Urine Ketones Negative (Negative) Urine Blood Trace-intact A (Negative) Urine Nitrite Negative (Negative) Urine Bilirubin Negative (Negative) Urine Urobilinogen 1.0 (0.2-1.0) Ur Leukocyte Esterase Negative (Negative) Urine RBC 0-2 (0-2) Urine WBC 2-5 (0-5) Ur Squamous Epith Cells None (None-Few) Urine Bacteria None (None) POC Troponin I (0.01-0.04) ng/ml Imaging Data Chest x-ray: Attestation: I have reviewed the pertinent imaging results. My impression: By my read no acute infiltrates, widening of the mediastinum. Radiologist's impression: Cardiovascular and mediastinum: Heart size and vasculature are normal in caliber and appearance. Lungs and pleural spaces: Lungs are clear. No pleural effusion, or pneumothorax. Bones and soft tissues: Tiny calcifications project over the right rotator cuff could represent calcific tendinopathy. IMPRESSION: No evidence of an acute pulmonary process. ECG Data Attestation: I personally reviewed and interpreted this ECG as follows: Interpretation: EKG by my read shows sinus bradycardia at a rate of 57. I do not note any acute ST or T-wave changes. QT and FL intervals within normal limits. EKG 2. By my read shows sinus bradycardia at a rate of 56. Again, no acute ST or T-wave changes in QT FL intervals within normal limits. Discharge Plan Discharge Clinical Impression: Nausea, Atypical chest pain Patient Disposition: Home, Self-Care Condition: Improved Additional Instructions: You received Valium for the nausea tonight. Two tablets of meclizine will be sent home with you. They can be used 1 tablet every 8 hours as needed.. 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 This is in anti dizziness medication. Please follow-up with Dr. Burns if you are not improving. Increase fluids. Follow-up with primary clinic or MD for ongoing symptoms. Return to the emergency room for worsening symptoms. A tonight you had 2 EKGs that did not show any evidence of heart attack or ischemia. Two tests call troponin was also negative for acute heart injury. You tested negative for urinary tract infection your liver function tests and electrolytes were normal. Your white count and hemoglobin were normal. Prescriptions: New meclizine 25 mg tablet 25 mg PO TID PRNQty: 15 0RF No Action rosuvastatin 20 mg tablet 20 mg PO DAILY Qty: 90 3RF nitroglycerin 0.4 mg tablet, sublingual 0.4 mg sublingual Q5M PRN (Reason: chest pain) Qty: 25 3RF Rx Instructions: do not exceed 3 doses per episode ciclopirox 8 % solution 1 applic topical QHS 28 Days Qty: 6.6 1RF sildenafil 100 mg tablet 100 mg PO ONCE PRN (Reason: sexual activity) Qty: 10 2RF Follow Up/Referrals: Denise Burns MD [Primary Care Provider] - Stand Alone Forms: [employer] Info Instructions
--- NOTE | 2023-11-22 17:37 | CRLHL7_ITS ---
For Patients: As a result of the Century Cures Act, medical imaging exams and procedure reports are released immediately into your electronic medical record. You may view this report before your referring provider. If you have questions, please contact your health care provider. INDICATION: Chest tightness. TECHNIQUE: Chest 1 view. COMPARISON: None. FINDINGS: Cardiovascular and mediastinum: Heart size and vasculature are normal in caliber and appearance. Lungs and pleural spaces: Lungs are clear. No pleural effusion, or pneumothorax. Bones and soft tissues: Tiny calcifications project over the right rotator cuff could represent calcific tendinopathy. IMPRESSION: No evidence of an acute pulmonary process. Dictated by Gokul Munoz MD @ 11/22/2023 7:08:33 PM (Electronically Signed)
[2023-11-22 18:01] LABS: Appearance Urine Clear (Clear); Bilirubin Urine Negative (Negative); Blood Urine Trace-intact (Negative); Color Urine Yellow (Yellow); Glucose Urine Negative (Negative); Ketones Urine Negative (Negative); Leukocyte Esterase Urine Negative (Negative); Nitrite Urine Negative (Negative); Protein Urine Negative (Negative)
[2023-11-22 18:04] LABS: Basophils Absolute Auto 0.02 K/uL (0.00-0.30); Basophils Percent Auto 0.2 % (0.0-3.0); Eosinophils Absolute Auto 0.09 K/uL (0.00-0.50); Eosinophils Percent Auto 0.9 % (0.0-7.0); Hematocrit 43.9 % (37.0-53.0); Hemoglobin* 14.4 gm/dL (13.5-17.5); Immature Granulocytes Abs Auto 0.02 K/uL (0.00-0.30); Immature Granulocytes Pct Auto 0.2 %; Lymphocytes Percent Auto 19.7 % (20-44); Mean Corpuscular HGB Conc 33 gm/dL (32-36); Mean Corpuscular Hemoglobin 29 pg (26-34); Mean Corpuscular Volume 87 fL (80-100); Monocytes Percent Auto 7.8 % (0.0-11.0); Neutrophils Absolute Auto 6.79 K/uL (1.7-7.0); Neutrophils Percent Auto 71.2 % (42.0-72.0); Platelet Count* 220 K/uL (140-440); Red Blood Count 5.03 m/uL (4.30-5.90); White Blood Count* 9.54 K/uL (4.50-11.00)
[2023-11-22 18:05] LABS: Slide Review Reflex No
[2023-11-22 18:19] LABS: Albumin* 4.5 g/dL (3.3-5.0)
[2023-11-22 18:20] LABS: Chloride* 107 mmol/L (96-114); Potassium* 4.5 mmol/L (3.6-5.1); Sodium* 138 mmol/L (135-149)
[2023-11-22 18:22] LABS: Bilirubin Total* 0.8 mg/dL (0.1-1.5); Creatinine* 0.8 mg/dL (0.5-1.5); Est. Creatinine Clearance* 107.73; Estimated Glomerular Filt Rate 105 ml/min
[2023-11-22 18:23] LABS: Alanine Aminotransferase* 23 U/L (4-50); Alkaline Phosphatase* 63 U/L (40-150); Anion Gap 10 mEq/L (7-15); Aspartate Amino Transferase* 25 U/L (12-35); Blood Urea Nitrogen* 13 mg/dL (7-30); Calcium* 9.2 mg/dL (8.4-10.6); Carbon Dioxide* 21 mmol/L (20-32); Glucose* 113 mg/dL (60-115); Total Protein* 7.4 g/dL (6.0-8.3)
[2023-11-22 18:35] LABS: C Reactive Protein* < 0.5 mg/dL (0.5-1.0)
[2023-11-22 18:46] LABS: RBC Urine 0-2 (0-2)
[2023-11-22] MEDS: 0.9 % SODIUM CHLORIDE 1000 ml 1,000 ML IV (19:00)
[2023-11-22] MEDS: ONDANSETRON 2 MG/ML inj 4 MG IVP (19:00)
[2023-11-22 19:08] LABS: D Dimer Quantitative* 0.06 ug/ml (0.00-0.50)
[2023-11-22 19:55] LABS: Troponin, Point-of-Care* 0.01 ng/ml (0.01-0.04)
[2023-11-22] MEDS: diazePAM 5 MG/ML inj IM (20:24)
[2023-11-22] MEDS: MECLIZINE HCL 25 MG TABLET 50 MG PO (20:25)
== END 2023-11-22 20:41 | disposition home or self-care (01) ==
PROVIDERS: Emergency Provider Family Medicine; PCP Internal Medicine
DX: R07.89 Other chest pain (principal); R11.0 Nausea
CPT/HCPCS: 36415; 71045; 80053; 81001; 84484; 85025; 85379; 86140; 93005; 94761; 96372; 96374; 99284; A9270; J2405; J3360; J7030

== ENCOUNTER 2025-01-09 08:16 | Outpatient (CLI) | payer OTHER, SELFPAY | END 2025-01-09 08:17 | disposition home or self-care (01) | LOC: NFLDREF 01-11 23:09 | PROVIDERS: PCP Internal Medicine; Referring Provider Internal Medicine; Visit Provider Internal Medicine | DX: I25.10 Atherosclerotic heart disease of native coronary artery without angina pectoris (principal); Z12.5 Encounter for screening for malignant neoplasm of prostate | CPT/HCPCS: 80061; G0103 ==